=== PATIENT | female | born 1970 | race Caucasian/White ===

== ENCOUNTER 2016-07-18 21:53 | Emergency (ER) | payer OTHER ==
[~2016-07-18] VITALS: Ht 167.6 cm; Wt 67.0 kg
[2016-07-18 22:49] LABS: EOSINOPHIL (%) 3.2 % (0-5); EOSINOPHIL COUNT 0.3 K/uL (0-0.3); HEMATOCRIT 33.3 % (36.0-46.0); IMMATURE GRANULOCYTE (%) 0.3 % (0.0-0.7); IMMATURE GRANULOCYTE COUNT 0.3 K/uL; LYMPHOCYTE COUNT 2.9 K/uL (1.0-2.8); MCH 30.5 PG (29.0-34.0); MCHC 33.9 G/DL (30.0-36.0); MCV 89.8 FL (83-99); MEAN PLAT.VOLUME 9.8 uM^3 (9.5-12.4); MONOCYTE (%) 6.3 % (3-12); MONOCYTE COUNT 0.6 K/uL (0-0.8); NEUTROPHIL (%) 61.5 % (45-76); NEUTROPHIL COUNT 6.2 K/uL (1.8-6.4); PLATELET COUNT 207 K/uL (156-360); RBC DIS.WIDTH-CV 12.8 % (11.8-14.6); RBC DIS.WIDTH-SD 40.4 % (39-53); RED BLOOD COUNT 3.71 M/uL (3.80-5.20)
[2016-07-18 22:57] LABS: CHLORIDE 111 mEq/L (99-109); POTASSIUM 3.9 mEq/L (3.7-5.4)
[2016-07-18 22:58] LABS: SODIUM 140 mEq/L (136-147)
[2016-07-18 22:59] LABS: GLUCOSE 125 mg/dL (70-99)
[2016-07-18 23:01] LABS: ANION GAP 10 MEQ/L (2-14)
[2016-07-18 23:03] LABS: GFR ESTIMATE (CALCULATED) > 59 mL/min/
[2016-07-18 23:04] LABS: UREA NITROGEN (BUN) 10 mg/dL (9-23)
[2016-07-19] MEDS ORDERED: LO-DOSE ASPIRIN81 M2 PO (00:38)
[2016-07-19] MEDS ORDERED: ONE-A-DAY ESSE1 EAC1 PO (00:38)
[2016-07-19] MEDS ORDERED: FOLIC ACID0.8 MG PO (00:38)
[2016-07-19] MEDS ORDERED: CALCIUM 500 MG1 EACH PO (00:38)
[2016-07-19] MEDS ORDERED: THERACRAN650 MG PO (00:39)
[2016-07-19 02:37] VITALS: BP 125/81
== END 2016-07-19 02:43 | disposition home or self-care (01) ==
LOC: EME 21:53
PROVIDERS: Emergency Medicine
DX: N99.89 Other postprocedural complications and disorders of genitourinary system (principal); Z98.890 Other specified postprocedural states; Z79.82 Long term (current) use of aspirin; Z88.1 Allergy status to other antibiotic agents; Z88.8 Allergy status to other drugs, medicaments and biological substances
CPT/HCPCS: 74177; 80048; 85025; 86850; 86900; 86901; 99281; 99285; J7030